=== PATIENT | male | born 2000 | race African-American/Black ===

== ENCOUNTER 2021-12-18 17:40 | Emergency (ER) | payer SELFPAY ==
[2021-12-18 17:54] VITALS: BP 156/75; PULSE 83; RESP 18; TEMP 98.5; BMI 23.1
[2021-12-18] MEDS ORDERED: FLUTICASONE PROP 0.05% 16 GM NASAL SPRAY NS ONE (18:22)
== END 2021-12-18 18:54 | disposition home or self-care (01) ==
LOC: JER 17:40 → JERFT 17:40
DX: R09.81 Nasal congestion (principal)
CPT/HCPCS: 99283-25